=== PATIENT | male | born 1965 | race Caucasian/White ===

== ENCOUNTER 2023-12-18 23:58 | Observation (INO) | payer OTHER, SELFPAY ==
[2023-12-18 19:23] VITALS: BP 133/96
--- NOTE | 2023-12-18 19:27 | ED.GENMED ---
ED Provider Triage
<Arias Ma PA-C - Last Filed: 12/18/23 19:28>
-
Patient seen by provider in Triage?: Seen in Triage
Attestation: A medical screening examination has been initiated by a qualified medical provider. Based on the assessment performed at this time, it has been determined that an emergent medical condition may exist and the patient has been informed
that further medical evaluation and possible additional diagnostic testing may be needed.
HPI: Left lower extremity pain, edema and erythema x 3 days. Chills yesterday but no documented fever. Small history. Labs and ultrasound ordered.
GENERAL: Alert , in no apparent distress
EYE: No visual abnormalities.
NECK: Trachea midline
ENT: No visible abnormalities.
LUNGS: No acute respiratory distress
NEUROLOGICAL: Alert and oriented
SKIN: Skin intact. Circumferential erythema and edema to the left lower extremity distal to the knee
MUSCULOSKELETAL: Moving extremities normally
PSYCH: Normal and appropriate interaction.
This is a medical evaluation conducted in person to initiate diagnostic evaluation and provide initial therapeutics. Please see further documentation by the treating clinician.
History of Present Illness
<Arias Ma PA-C - Last Filed: 12/18/23 19:28>
General
Chief Complaint: Skin Problem
Time Seen by Provider: 12/18/23 21:59
<Usman Desai DO - Last Filed: 12/18/23 23:30>
History of Present Illness
History of Present Illness:
TIME OF INITIAL ENCOUNTER: 10 PM
HPI: Patient presents due to concerns of the left lower extremity including redness for the last 2 weeks. It has been worsening more recently and yesterday he had chills. He denies history of diabetes.
EXAM:
GENERAL: Appears somewhat chronically ill
HEENT: Moist oral mucosa
CARDIOVASCULAR: No murmurs, normal heart rate, regular rhythm, No chest wall tenderness
PULMONARY: No respiratory distress, breath sounds are clear and equal
ABDOMEN: Soft with no peritoneal signs, no tenderness
NEUROLOGIC: Fair strength all extremities, no coordination deficits
PSYCHIATRIC: Appropriate mental status, normal insight and judgement
EXTREMITIES: Mild tenderness to the distal left lower extremity inferior to the knee, no edema, moves all extremities equally
SKIN: There is extensive erythema and warmth noted at the distal left lower extremity with lymphangitic spreading up to the left groin
NUMBER AND COMPLEXITY OF PROBLEMS ADDRESSED AT THE ENCOUNTER
� Chronic conditions affecting care: Has had bowel obstruction in the past, denies diabetes
� Acute Exacerbation and/or Progression of Chronic Illness: This is an acute problem
� Differential Diagnosis includes: Cellulitis, bacteremia, lymphangitis, DVT
AMOUNT AND/OR COMPLEXITY OF DATA TO BE REVIEWED AND ANALYZED
� I performed an independent evaluation of and my interpretation is:
EKG:
CT:
X-rays:
Laboratory Studies: White count 14.6, creatinine 1.4
Other: Ultrasound imaging shows no DVT
� Review of other/old records: I reviewed records, in 2013 white count
� Clinical information was obtained by an independent historian: I spoke to at bedside
� Prescriptions/Medications Considered but not given:
� Further testing considered but not performed:
RISK OF COMPLICATIONS AND/OR MORBIDITY OR MORTALITY OF PATIENT MANAGEMENT
� Social determinants of health affecting care: Lives at home
� Discussion with other providers: Hospitalist for admission, Dr. Alex at 11:25 PM
� Escalation of care including admission/observation vs risk of discharge considered: The patient has rather significant extensive findings of cellulitis to the distal left lower extremity. However this also is associated with
lymphangitic spread proximally up to the groin. He has an elevated white count and had chills yesterday. Blood cultures obtained. Planning admission to the hospital for IV antibiotics. He is given Ancef in the ER
ANY OTHER UPDATES:
Past History
<Arias Ma PA-C - Last Filed: 12/18/23 19:28>
Past History
ED Past Medical History: None and Other; Negative GERD, HTN, Hypercholesterolemia or NIDDM
ED Past Surgical History: Bowel resection (SBO Ileiostomy with reversal,)
Social History
Tobacco: Smoker
Alcohol: None
Drug: None
Personal:
Living: with family
Employment: Employed
Family History
Family History: Hypertension; Negative Early CAD
Phy Exam
<Usman Desai DO - Last Filed: 12/18/23 23:30>
Physical Exam
Physical Exam:
See HPI
Course
<Arias Ma PA-C - Last Filed: 12/18/23 19:28>
Orders/Labs/Results
Orders:
Orders
12/18/23 19:27
US Periph Venous LOWER Ext LT Urgent
Comment:
Reason For Exam: edema, erythema, pain
12/18/23 19:30
Basic Metabolic Panel Urgent
Complete Blood Count/With Diff Urgent
12/18/23 22:38
CeFAZolin 2 GRAM [Ancef] 2 grams in 10 ml IV NOW
12/18/23 22:55
Blood Culture Routine
[facility] Source: Blood/Venous
Specimen Description:
Blood Culture Urgent
[facility] Source: Blood/Venous
Specimen Description:
Abnormal Lab Results
12/18/23
19:30
WBC 14.6 H 10^3/uL
(4.8-10.8)
RBC 4.60 L 10^6/uL
(4.70-6.10)
Abs Immat Gran (auto) 0.1 H 10^3/uL
(0-0.05)
Absolute Neuts (auto) 10.3 H 10^3/uL
(1.4-6.5)
Absolute Monos (auto) 1.5 H 10^3/uL
(0.1-0.6)
Lymphocytes % 16.8 L %
(20.5-51.1)
Monocytes % 10.2 H %
(1.7-9.3)
Creatinine 1.4 H mg/dL
(0.7-1.3)
Glucose 151 H mg/dl
(70-99)
12/18/23 19:30
12/18/23 19:30
Vital Signs
Initial and Last Documented VS:
Initial Vital Signs
Temp Pulse Resp BP Pulse Ox
98.6 F 96 18 133/96 100
12/18/23 19:23 12/18/23 19:23 12/18/23 19:23 12/18/23 19:23 12/18/23 19:23
Last Documented Vital Signs
Temp Pulse Resp BP Pulse Ox
98.6 F 81 18 122/74 99
12/18/23 19:23 12/18/23 22:59 12/18/23 22:59 12/18/23 22:00 12/18/23 22:59
<Usman Desai, DO - Last Filed: 12/18/23 23:30>
Orders/Labs/Results
Orders:
Orders
12/18/23 19:27
US Periph Venous LOWER Ext LT Urgent
Comment:
Reason For Exam: edema, erythema, pain
12/18/23 19:30
Basic Metabolic Panel Urgent
Complete Blood Count/With Diff Urgent
12/18/23 22:38
CeFAZolin 2 GRAM [Ancef] 2 grams in 10 ml IV NOW
12/18/23 22:55
Blood Culture Routine
[facility] Source: Blood/Venous
Specimen Description:
Blood Culture Urgent
[facility] Source: Blood/Venous
Specimen Description:
Abnormal Lab Results
12/18/23
19:30
WBC 14.6 H 10^3/uL
(4.8-10.8)
RBC 4.60 L 10^6/uL
(4.70-6.10)
Abs Immat Gran (auto) 0.1 H 10^3/uL
(0-0.05)
Absolute Neuts (auto) 10.3 H 10^3/uL
(1.4-6.5)
Absolute Monos (auto) 1.5 H 10^3/uL
(0.1-0.6)
Lymphocytes % 16.8 L %
(20.5-51.1)
Monocytes % 10.2 H %
(1.7-9.3)
Creatinine 1.4 H mg/dL
(0.7-1.3)
Glucose 151 H mg/dl
(70-99)
12/18/23 19:30
12/18/23 19:30
Vital Signs
Initial and Last Documented VS:
Initial Vital Signs
Temp Pulse Resp BP Pulse Ox
98.6 F 96 18 133/96 100
12/18/23 19:23 12/18/23 19:23 12/18/23 19:23 12/18/23 19:23 12/18/23 19:23
Last Documented Vital Signs
Temp Pulse Resp BP Pulse Ox
98.6 F 81 18 122/74 99
12/18/23 19:23 12/18/23 22:59 12/18/23 22:59 12/18/23 22:00 12/18/23 22:59
Felipelt;Usman Desai DO - Last Filed: 12/18/23 23:30>
*Critical Care Note
Total Time (30-74mins, 75-104mins- exclusive of procedures): Not Applicable
ED Attending Note
<Arias Ma PA-C - Last Filed: 12/18/23 19:28>
-
Portions of this chart may have been created with voice recognition software.� Occasional wrong word or��sound alike� substitutions may have occurred due to the inherent limitations of voice recognition software.
Discharge Plan
Departure
Patient Disposition: Admit
Date of Disposition: 12/18/23
Time of Disposition: 23:27
Presentation/result/management discussed w/ accepting MD/DO: Hospitalist
Discharge Problem:
Cellulitis
Prescriptions:
No Action
No Current Medications
0
Referrals:
NONE,* [Family Provider] -
Interventions
Interventions:
*Risk Screen - Suicide Last Done: 12/18/23 19:23
*General Assessment Last Done: 12/18/23 19:23
*Neglect/Abuse Screening Last Done: 12/18/23 19:23
ED- Fall Risk Assessment Last Done: 12/18/23 21:20
*ED COVID-19 Vaccine History Last Done: 12/18/23 19:23
ED-Skin Assessment Last Done: 12/18/23 21:20
Discharge Date and Time
Print Language: IRANIAN
[2023-12-18 19:37] LABS: % Basophils 0.7 % (0-2); % Eosinophils 1.8 % (0-6); % Immature Granulocytes 0.3 % (0-0.5); % Lymphocytes 16.8 % (20.5-51.1); % Monocytes 10.2 % (1.7-9.3); % Neutrophils 70.2 % (42.2-75.2); Absolute Basophils 0.1 10^3/uL (0-0.2); Absolute Eosinophils 0.3 10^3/uL (0-0.7); Absolute Immature Granulocytes 0.1 10^3/uL (0-0.05); Absolute Lymphocytes 2.5 10^3/uL (1.2-3.4); Absolute Monocytes 1.5 10^3/uL (0.1-0.6); Absolute Neutrophils 10.3 10^3/uL (1.4-6.5); Hemoglobin 13.2 g/dL (13.0-18.0); Mean Corpuscular Hgb 28.7 pg (27.0-31.0); Mean Platelet Volume 9.6 fL (7.4-10.4); Nucleated Red Blood Cells % 0 % (-); Platelet Count 254 10^3/uL (130-400); Red Cell Dist. Width 14.4 % (11.5-14.5); White Blood Cell Count 14.6 10^3/uL (4.8-10.8)
[2023-12-18 19:59] LABS: Blood Urea Nitrogen 17 mg/dl (9-20); Calcium 9.4 mg/dl (8.4-10.2); Carbon Dioxide 25 mmol/L (22-30); Chloride 101 mmol/L (98-107); Glucose 151 mg/dl (70-99); Potassium 4.4 mmol/L (3.5-5.1); Sodium 138 mmol/L (135-145); eGFR 58.99
[2023-12-18 21:15] VITALS: BP 114/83; BMI 29.9
[2023-12-18 21:18] VITALS: BP 114/83
[2023-12-18 22:00] VITALS: BP 122/74
[2023-12-18] MEDS: ANCEF 10 IV (22:57)
[2023-12-18 23:00] VITALS: BP 113/73
--- NOTE | 2023-12-18 23:49 | HPS.HSE ---
Family Physician
-
Family Physician: * NONE
Chief Complaint
-
Left lower extremity erythema
History of Present Illness
This is a 60-year-old male with past medical history of Crohn's, intestinal obstruction status post ileostomy and later reanastomosis presenting to the emergency department with left lower extremity redness and swelling over the last 2 weeks.
Patient reports initial area of erythema that was small and just above the ankle starting about 2 weeks ago. We monitored it for several days and there was no significant change up until 1 day ago when he developed rapid extension of the erythema
now covering the most of the jade/calf and extending to the knees with tracking up towards the groin along the medial thigh. Chills but no fever at home but has not been checking. Denies prior history of cellulitis, antibiotic use, diabetes. No
injuries.
In ED he was afebrile and hemodynamically stable. Leukocytosis to 14.6. Cr 1.4. U/s negative.
Medical History
Past Medical History
Past Medical History: Reports Other
Additional Past Medical History:
crohns
Past Surgical History: Reports Bowel Resection (s/p ileostomy and reanastomosis)
Social History
Tobacco: Smoker (03/11 ppd)
Alcohol: None
Drug: None
Personal: Partner
Living: With Family
Employment: Employed
Family History
Family History: Not pertinent
Allergies / Home Medications
Allergies reflects when Allergies were last updated in [facility].
Home Medications with original date entered in [employer]
Allergy/Medication List:
Allergies
Allergy/AdvReac Type Severity Reaction Status Date / Time
No Known Allergies Allergy Verified 12/18/23 19:26
Home Medications
No Meds [No Current Medications] 12/18/23
Review of Systems
-
History Source: Patient
Constitutional: Reports No Symptoms
EENT: Reports No Symptoms
Respiratory: Reports No Symptoms
Cardiac: Reports No Symptoms
Abdomen/GI: Reports No Symptoms
: Reports No Symptoms
Musculoskeletal: Reports No Symptoms
Skin: Reports Rash
Neurological: Reports No Symptoms
Endocrine: Reports No Symptoms
Hematologic/Lymphatic: Reports No Symptoms
Psych: Reports No Symptoms
Physical Exam
Vital Signs
Vital Signs
Temp Pulse Resp BP Pulse Ox
98.6 F 81 18 122/74 99
12/18/23 19:23 12/18/23 22:59 12/18/23 22:59 12/18/23 22:00 12/18/23 22:59
Physical Exam
General: No Apparent Distress, Comfortable and Obese
HEENT: NormoCephalic, Anicteric, Moist mucous membranes and PERRLA
Respiratory: Clear
Cardiac: S1/S2 and Regular Rhythm
Breast: Deferred by me
GI: Soft, Non Tender, Non Distended and Normal Bowel Sounds
Rectal: Deferred by Provider
Genito-urinary: Deferred by me
Musculoskeletal: No Clubbing, No Cyanosis and No Edema
Skin: Rash (large erythematous patch over the left jade with tracking towards the groin. Tender with induration. No purulence. No abscess. )
Neuro: AO x 3
Hematologic/Lymphatic: No Lymphadenopathy
Psych: Calm
Laboratory Results
-
12/18/23 19:30
12/18/23 19:30
Data Reviewed
-
Ultrasound: Report Reviewed by me
Lab Data: Labs Reviewed by me
Old Records: Reviewed
Impression/Plan
-
IMPRESSION:
Cellulitis of the left leg, rapid spread over the last 24 hours with lymphangitic tracking along the left thigh. Leukocytosis. No fevers, hemodynamically stable and non-toxic appearance. No h/o antibiotic use or hospitalization. No h/o diabetes.
No recent abx use
PLAN:
Cellulitis - Recent chills yesterder, lymphangitic spread but no sepsis, no significant risk factors for resistance as stated above but cannot rule out caMRSA.
- admit to med/surg
- blood cultures pending
- IV cefazolin
- pain control and keep leg elevated
Tobacco use - 1/3 ppd, no h/o chronic bronchitis
- prn nicotine patch
- DVT PPX - lovenox sq
Code Status - Full Code
[2023-12-19] VITALS (9 sets, daily range): BP systolic 107–136; BP diastolic 63–79; BMI 27.4; BMI 29.8
[2023-12-19 05:47] LABS: Hematocrit 39.9 % (39.0-52.0); Hemoglobin 13.4 g/dL (13.0-18.0); Mean Corp Hgb Conc. 33.6 g/dL (33.0-37.0); Mean Corpuscular Hgb 29.8 pg (27.0-31.0); Mean Corpuscular Volume 88.7 fL (80.0-94.0); Mean Platelet Volume 9.6 fL (7.4-10.4); Platelet Count 247 10^3/uL (130-400); Red Cell Dist. Width 14.3 % (11.5-14.5); White Blood Cell Count 13.9 10^3/uL (4.8-10.8)
[2023-12-19 06:08] LABS: Blood Urea Nitrogen 17 mg/dl (9-20); Calcium 9.3 mg/dl (8.4-10.2); Carbon Dioxide 22 mmol/L (22-30); Chloride 104 mmol/L (98-107); Estimated Creatinine Clearance 84 ml/min; Glucose 115 mg/dl (70-99); Potassium 4.2 mmol/L (3.5-5.1); Sodium 139 mmol/L (135-145); eGFR > 60.00
[2023-12-19] MEDS: ANCEF 10 IV ×3 (07:39→23:04)
--- NOTE | 2023-12-19 11:05 | CM ---
CM reviewed chart. CM introduced self and role. Patient lives with his girlfriend. He has support at home. 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 He has no +SDOHs. He is independent, drives, owns no DME. He has18 steps to enter into her
single level condo. His girlfriend will provide transportation once he is discharged.
[facility] form:
CM explained what observation status is and also went over [employer] and [employer] letter. Patient verbalized understanding and agreeable to sign both. Copies given to patient. Originals filed.
--- NOTE | 2023-12-19 14:37 | W.PN.HOSP.TC ---
Today's Communication/Plan
-
Continue cefazolin
Follow-up cultures
MRSA nares
Assessment / Plan
Assessment / Plan
Physical Exam
General: No Apparent Distress, Comfortable and Obese
HEENT: NormoCephalic, Anicteric, Moist mucous membranes and PERRLA
Respiratory: Clear
Cardiac: S1/S2 and Regular Rhythm
Breast: Deferred by me
GI: Soft, Non Tender, Non Distended and Normal Bowel Sounds
Rectal: Deferred by Provider
Genito-urinary: Deferred by me
Musculoskeletal: No Clubbing, No Cyanosis and No Edema
Skin: Rash (erythema from left jade with tracking towards the groin. improved, and tenderness improved as per patient; No purulence. No abscess. )
Neuro: AO x 3
Hematologic/Lymphatic: No Lymphadenopathy
Psych: Calm
Cellulitis of the left leg, rapid spread over the last 24 hours. Leukocytosis. No fevers, hemodynamically stable and non-toxic appearance. No h/o antibiotic use or hospitalization. No h/o diabetes. No recent abx use
PLAN:
Sepsis
Cellulitis -
- admit to med/surg
- blood cultures pending
- IV cefazolin
- pain control and keep leg elevated
-MRSA PCR
Tobacco use - /3 ppd, no h/o chronic bronchitis
- prn nicotine patch
- DVT PPX - lovenox sq
Code Status - Full Code
Anticipated Discharge: 24 - 48 hours
Subjective/Interval History
-
Date of Service: December 19, 2023
No acute events overnight, erythema appears to be improving as per patient
Objective Data
-
Labs:
Laboratory Results
12/19/23
05:33
WBC 13.9 H
Hgb 13.4
Hct 39.9
Plt Count 247
Sodium 139
Potassium 4.2
Chloride 104
Carbon Dioxide 22
BUN 17
Creatinine 1.2
Glucose 115 H
Calcium 9.3
Vital Signs:
Vital Signs
Temp Pulse Resp BP Pulse Ox
98.3 F 76 18 134/78 99
12/19/23 14:32 12/19/23 14:32 12/19/23 14:32 12/19/23 14:32 12/19/23 14:32
Review of Systems
-
History Source: Patient
All other systems: Not reviewed unless documented
Data Reviewed
-
Ultrasound: Image personally visualized and interpreted
Labs: Labs Reviewed by me
[2023-12-20 07:18] VITALS: BP 145/85
[2023-12-20] MEDS: ANCEF 10 IV (08:05)
[2023-12-20 11:31] VITALS: BP 139/73
--- NOTE | 2023-12-20 12:10 | CM ---
Met with patient at bedside
Reported that he has transport home
Plan: Discharge to home today; no needs
--- NOTE | 2023-12-20 12:19 | PTCARENOTE ---
Pt wants to leave AMA even though the physician is discharging him. The pt is refusing to wait for discharge instructions. MD advised and said he would get to it soon. Pt left AMA form signed and made aware.
--- NOTE | 2023-12-20 12:27 | W.PN.HOSP.TC ---
Addendum entered and electronically signed by Tiburcio Pitt MD 12/20/23 16:58:
[id number]
Original Note:
Today's Communication/Plan
-
cephalexin 500 qid for 7 days total of abx
f/u cbc, bmp outpatient
Assessment / Plan
Assessment / Plan
Physical Exam
General: No Apparent Distress, Comfortable and Obese
HEENT: NormoCephalic, Anicteric, Moist mucous membranes and PERRLA
Respiratory: Clear
Cardiac: S1/S2 and Regular Rhythm
Breast: Deferred by me
GI: Soft, Non Tender, Non Distended and Normal Bowel Sounds
Rectal: Deferred by Provider
Genito-urinary: Deferred by me
Musculoskeletal: No Clubbing, No Cyanosis and No Edema
Skin: Rash (erythema from left jade with tracking towards the groin. improved, and tenderness improved as per patient; No purulence. No abscess. )
Neuro: AO x 3
Hematologic/Lymphatic: No Lymphadenopathy
Psych: Calm
Cellulitis of the left leg, rapid spread over the last 24 hours. Leukocytosis. No fevers, hemodynamically stable and non-toxic appearance. No h/o antibiotic use or hospitalization. No h/o diabetes. No recent abx use
PLAN:
Sepsis
Cellulitis -
- admit to med/surg
�Erythema greatly improved
-Cefazolin changed to cephalexin to complete 7-day course total
- pain control and keep leg elevated
-MRSA PCR Neg
Tobacco use - / ppd, no h/o chronic bronchitis
- prn nicotine patch
- DVT PPX - lovenox sq
Code Status - Full Code
More than 30 minutes spent in discharge including
Final examination of the patient
Summarizing hospital stay
Instructions for continuing care to all relevant caregivers
Preparation of discharge records, prescriptions, and referral forms
Total time spent (35 in minutes):
Anticipated Discharge: Today
Subjective/Interval History
-
Date of Service: December 20, 2023
Erythema greatly improved
Objective Data
-
Vital Signs:
Vital Signs
Temp Pulse Resp BP Pulse Ox
97.9 F 74 18 139/73 97
12/20/23 11:31 12/20/23 11:31 12/20/23 11:31 12/20/23 11:31 12/20/23 11:31
I&O
12/19/23 12/20/23 12/21/23
06:59 06:59 06:59
Intake Total 480 / 480
Balance 480 / 480
Review of Systems
-
History Source: Patient
All other systems: Not reviewed unless documented
Data Reviewed
-
Ultrasound: Image personally visualized and interpreted
Labs: Labs Reviewed by me
--- NOTE | 2023-12-20 12:29 | W.DS.TRANS ---
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
-
Discharge Instructions:
Discharge Diagnosis/Procedures Sepsis
Cellulitis -
Diet Low Fiber,Low Cholesterol
Activity As tolerated
Blood Work cbc, bmp in 3-5 days
Instructions:
Stand-Alone Forms:
Changes to Home Medications: Yes
Discharge Medications:
DC Medications w/original date entered in [employer]
cephalexin 500 mg capsule 500 mg PO QID 6 days #24 caps 12/20/23
Home Medication Changes
cephalexin 500 mg capsule 500 mg PO QID 6 days #24 caps 12/20/23
Pending Results: No
== END 2023-12-20 13:15 | disposition home or self-care (01) ==
LOC: 4 EAST ACU 23:58
PROVIDERS: Physician Assistant Medical; ADMITTING PHYSICIAN Internal Medicine; ATTENDING PHYSICIAN Internal Medicine; EMERGENCY PHYSICIAN Emergency Medicine
DX: A41.9 Sepsis, unspecified organism (principal); L03.116 Cellulitis of left lower limb; M79.605 Pain in left leg; R60.9 Edema, unspecified; D72.829 Elevated white blood cell count, unspecified; F17.210 Nicotine dependence, cigarettes, uncomplicated; K50.90 Crohn's disease, unspecified, without complications; M79.89 Other specified soft tissue disorders; Z90.49 Acquired absence of other specified parts of digestive tract; Z82.49 Family history of ischemic heart disease and other diseases of the circulatory system
CPT/HCPCS: 80048; 85025; 85027; 87040; 87641; 93971; 96374; 99284; G0378